=== PATIENT | female | born 2000 ===

== ENCOUNTER 2021-08-02 07:10 | Inpatient (IN) | payer MEDICAID ==
[~2021-08-02] VITALS: Ht 157.5 cm; Wt 67.1 kg
[2021-08-02] MEDS ORDERED: LIDOCAINE 2%HCL (LOCAL ANESTH.) INJ 20ML MDV IJ PRN (07:30)
[2021-08-02] MEDS ORDERED: PENICILLIN G POT 5MIL/D5 50ML 50 ML IV ONE (07:30)
[2021-08-02] MEDS ORDERED: BUTORPHANOL TARTRATE 2 MG/1 ML VIAL IV PRN ×2 (07:30)
[2021-08-02] MEDS ORDERED: PROMETHAZINE HCL 25 MG/ML 1ML IV PRN (07:30)
[2021-08-02] MEDS: LACTATED RINGER'S 1,000 ML IV SCH ×3 (08:03→15:09)
[2021-08-02 08:23] LABS: Basophils # (auto) 0 10 ^3/uL (0-0.2); Basophils % (auto) 0.3 % (0.0-2.0); Eosinophils # (auto) 0.1 10 ^3/uL (0-0.8); Eosinophils % (auto) 0.8 % (0.0-7.0); Hematocrit 35.7 % (36.0-46.0); Hemoglobin 12.3 g/dL (12.2-16.2); Lymphocytes # (auto) 1.7 10 ^3/uL (0.4-5.4); Lymphocytes % (auto) 12.4 % (10.0-50.0); Mean Corpuscular Hemoglobin 32.4 pg (28.0-32.0); Mean Corpuscular Hgb Conc. 34.4 g/dL (32.0-36.0); Mean Corpuscular Volume 94.1 fL (80.0-100.0); Monocytes % (auto) 7.4 % (0.0-12.0); Neutrophils # (auto) 10.8 10 ^3/uL (1.6-8.6); Neutrophils % (auto) 79.1 % (37.0-80.0); Nucleated Red Blood Cells % 0.1 %; Red Blood Cells 3.79 10^6/uL (4.0-5.20); Red Cell Distribution Width 13.6 % (11.8-14.3); White Blood Cell 13.7 10^3/uL (4.4-10.8)
[2021-08-02 08:47] LABS: Albumin 2.7 g/dL (3.4-5.0); Calcium 8.7 mg/dL (8.5-10.1); Potassium 3.7 mmol/L (3.5-5.1)
[2021-08-02 08:49] LABS: INR 0.94 (0.9-1.15); Partial Thromboplastin Time 27.6 sec (23.6-33.0)
[2021-08-02 08:50] LABS: BUN/Creatinine Ratio 16.3; Bilirubin, Total 0.5 mg/dL (0.2-1.0); Total Protein 6.2 g/dL (6.4-8.2)
[2021-08-02 08:53] LABS: Urine Amorphous Crystal FEW /hpf (None Seen); Urine Bacteria NONE SEEN /hpf (None Seen); Urine Blood 2+ /uL (Negative); Urine Specific Gravity 1.009 (1.001-1.035); Urine WBC 16 /hpf (0 - 5)
[2021-08-02 09:05] LABS: Alcohol, Urine < 3.0 mg/dL (0-10); Amphetamine Screen, Urine NEGATIVE (NEGATIVE); Barbiturate Scree,Urine NEGATIVE (NEGATIVE); Benzodiazephine Screen, Urine NEGATIVE (NEGATIVE); Cannabinoid Screen, Urine NEGATIVE (NEGATIVE); Cocaine Screen, Urine NEGATIVE (NEGATIVE); Opiate Scree,Urine NEGATIVE (NEGATIVE); Phencyclidine Screen, Urine NEGATIVE (NEGATIVE)
[2021-08-02] MEDS ORDERED: TERBUTALINE SULFATE 1 MG/ML 1ML VIAL SC PRN (10:00)
[2021-08-02] MEDS ORDERED: LACT. RINGERS/OXYTOCIN 20UNITS 1,000 ML IV SCH (10:00)
[2021-08-02] MEDS ORDERED: LACT. RINGERS/OXYTOCIN 20UNITS 500 ML IV ONE ×2 (10:00→10:30)
[2021-08-02] MEDS: PENICILLIN G POTASSIUM 2,500,000 UNITS in D5W 5% 50 ML IV SCH ×2 (12:35→15:30)
[2021-08-02] MEDS ORDERED: ePHEDrine SULFATE 50 MG/ML AMP IV ONE (13:30)
[2021-08-02] MEDS ORDERED: NALOXONE HCL 0.4 MG/ML VIAL IV ONE (13:30)
[2021-08-02] MEDS ORDERED: LACTATED RINGER'S 1,000 ML IV ONE (13:30)
[2021-08-02] MEDS ORDERED: ROPIVACAINE HCL 200 ML EPI SCH ×2 (13:30)
[2021-08-02] MEDS ORDERED: LIDOCAINE HCL 2 %PF INJ 10ML AMP IJ ONE (13:30)
[2021-08-02] MEDS ORDERED: fentaNYL CITRATE 100 MCG/2 ML VL IV ONE (13:30)
[2021-08-02] MEDS ORDERED: METHYLERGONOVINE MALEATE 0.2 MG/ML AMP IM ONE (17:19)
[2021-08-02] MEDS: DERMOPLAST 60ML BOTTLE TOP PRN (18:02)
[2021-08-02] MEDS: WITCH HAZEL-GLYCERIN PAD TOP PRN (18:02)
[2021-08-02] MEDS: PHISODERM TOP SOLN 240ML BTL TOP PRN (18:03)
[2021-08-02 19:00] VITALS: BP 107/64
[2021-08-02] MEDS: ACETAMINOPHEN 325 MG TAB PO PRN (20:20)
[2021-08-02 23:00] VITALS: BP 102/60
[2021-08-02] MEDS: IBUPROFEN 600 MG TAB PO PRN (23:25)
[2021-08-03 03:30] VITALS: BP 90/54
[2021-08-03 06:06] LABS: Rubella Antibodies, IgG 1.19 index (Immune >0.99)
[2021-08-03 07:00] VITALS: BP 107/55
[2021-08-03] MEDS: IBUPROFEN 600 MG TAB PO PRN ×2 (07:37→17:48)
[2021-08-03 08:06] LABS: RPR Non Reactive (Non Reactive)
[2021-08-03 11:00] VITALS: BP 104/50
[2021-08-03] MEDS: WITCH HAZEL-GLYCERIN PAD TOP PRN (11:22)
[2021-08-03] MEDS: ACETAMINOPHEN 325 MG TAB PO PRN (12:18)
[2021-08-03 15:00] VITALS: BP 110/60
[2021-08-03 19:16] VITALS: BP 102/57
[2021-08-03 23:00] VITALS: BP 97/60
[2021-08-04] MEDS: IBUPROFEN 600 MG TAB PO PRN ×2 (00:09→09:20)
[2021-08-04 03:00] VITALS: BP 94/55
[2021-08-04 07:00] VITALS: BP 107/55
[2021-08-04] MEDS: WITCH HAZEL-GLYCERIN PAD TOP PRN (09:20)
[2021-08-04] MEDS: DERMOPLAST 60ML BOTTLE TOP PRN (09:20)
[2021-08-04] MEDS: PHISODERM TOP SOLN 240ML BTL TOP PRN (09:20)
== END 2021-08-04 09:32 | disposition home or self-care (01) | DRG 560 ==
LOC: LDRP 07:10
PROVIDERS: ADMIT Obstetrics & Gynecology; ATTEND Obstetrics & Gynecology
PROC: 10E0XZZ Delivery of Products of Conception, External Approach (ICD-10-PCS; principal; 2021-08-02)
PROC: 0KQM0ZZ Repair Perineum Muscle, Open Approach (ICD-10-PCS; 2021-08-02)
PROC: 3E0R3BZ Introduction of Anesthetic Agent into Spinal Canal, Percutaneous Approach (ICD-10-PCS; 2021-08-02)
PROC: 00HU33Z Insertion of Infusion Device into Spinal Canal, Percutaneous Approach (ICD-10-PCS; 2021-08-02)
DX: O70.1 Second degree perineal laceration during delivery (principal); Z37.0 Single live birth; Z20.822 Contact with and (suspected) exposure to COVID-19; Z3A.40 40 weeks gestation of pregnancy
CPT/HCPCS: 36415; 59409; 62282; 80053; 80307; 81001; 85025; 85610; 85730; 86592; 86703; 86762; 86850; 86900; 86901; 87340; 87426; 94760; 96360; 96361; 96365; 96366; G0378; J2540; J2590; J7060